=== PATIENT | male | born 1980 | race Two or more races ===

== ENCOUNTER 2019-09-02 01:46 | Emergency (ER) | payer OTHER ==
[~2019-09-02] VITALS: Ht 188 cm; Wt 102.1 kg
[2019-09-02 02:05] VITALS: BP 121/85
== END 2019-09-02 02:58 | disposition home or self-care (01) ==
LOC: ER 01:49
DX: Z03.818 Encounter for observation for suspected exposure to other biological agents ruled out (principal)
CPT/HCPCS: 99283; U0003

== ENCOUNTER 2019-10-06 06:47 | Emergency (ER) | payer BC, OTHER ==
[~2019-10-06] VITALS: Ht 188 cm; Wt 102.1 kg
[2019-10-06 06:49] VITALS: BP 111/56
[2019-10-06] MEDS ORDERED: TDAP [DIPH/PERTUSSIS/TET] 0.5 ML VIAL IM ONE ×2 (07:00→07:04)
== END 2019-10-06 07:10 | disposition home or self-care (01) ==
LOC: ER 06:50
DX: S91.135A Puncture wound without foreign body of left lesser toe(s) without damage to nail, initial encounter (principal); Z23 Encounter for immunization; W52.XXXA Crushed, pushed or stepped on by crowd or human stampede, initial encounter; Y93.89 Activity, other specified; Y92.89 Other specified places as the place of occurrence of the external cause; Y99.8 Other external cause status
CPT/HCPCS: 90715

== ENCOUNTER 2020-06-06 00:37 | Emergency (ER) | payer BC, OTHER ==
[~2020-06-06] VITALS: Ht 188 cm; Wt 102.1 kg
[2020-06-06 00:37] VITALS: BP 119/85
== END 2020-06-06 01:32 | disposition home or self-care (01) ==
LOC: ER 00:42
DX: Z20.822 Contact with and (suspected) exposure to COVID-19 (principal)
CPT/HCPCS: 99283; C9803; U0003

== ENCOUNTER 2020-06-22 02:11 | Emergency (ER) | payer OTHER ==
[~2020-06-22] VITALS: Ht 188 cm; Wt 102.1 kg
[2020-06-22 02:18] VITALS: BP 134/82
== END 2020-06-22 02:49 | disposition home or self-care (01) ==
LOC: ER 02:14
DX: Z20.822 Contact with and (suspected) exposure to COVID-19 (principal)
CPT/HCPCS: 99283; C9803; U0003

== ENCOUNTER 2023-01-20 06:39 | Emergency (ER) | payer OTHER ==
[~2023-01-20] VITALS: Ht 188 cm; Wt 102.1 kg
[2023-01-20 06:41] VITALS: TEMP 98
[2023-01-20] MEDS ORDERED: KETOROLAC TROMETHAMINE INJ 30 MG/ML VIAL ONE (06:45)
[2023-01-20] MEDS ORDERED: KETOROLAC TROMETHAMINE INJ 60 MG/2 ML VIAL IM ONE (07:00)
[2023-01-20 09:17] VITALS: BP 136/85; O2SAT 98
== END 2023-01-20 08:07 | disposition home or self-care (01) ==
LOC: EDUNIT# 06:39 → ER 06:41
DX: S52.121A Displaced fracture of head of right radius, initial encounter for closed fracture (principal); Z60.2 Problems related to living alone; V19.88XA Pedal cyclist (driver) (passenger) injured in other specified transport accidents, initial encounter; Y93.89 Activity, other specified; Y92.89 Other specified places as the place of occurrence of the external cause; Y99.8 Other external cause status
CPT/HCPCS: 29125; 73080; 96372; 99283; J1885